=== PATIENT | male | born 1995 | race Caucasian/White ===

== ENCOUNTER 2021-07-15 06:06 | Day surgery (SDC) | payer MEDICAID, SELFPAY ==
[~2021-07-15] VITALS: Ht 166.4 cm; Wt 70.3 kg
[2021-07-15] MEDS ORDERED: fentaNYL citrate 0.05 MG/ML VIAL ONE (08:00)
[2021-07-15] MEDS ORDERED: MIDAZOLAM 5 MG/5 ML VIAL ONE (08:00)
[2021-07-15] MEDS ORDERED: MIDAZOLAM 2 MG/2 ML VIAL IVP ONE (08:50)
== END 2021-07-15 09:25 | disposition home or self-care (01) ==
LOC: MFCC 06:06 → MDS 06:06
PROVIDERS: ATTEND Internal Medicine Gastroenterology
DX: R10.11 Right upper quadrant pain (principal); K21.9 Gastro-esophageal reflux disease without esophagitis; Z79.899 Other long term (current) drug therapy; Z20.822 Contact with and (suspected) exposure to COVID-19
CPT/HCPCS: 36415; 43239; 86677; 87426; J2250; J3010